=== PATIENT | female | born 1985 | race Caucasian/White ===

== ENCOUNTER 2018-09-02 07:31 | Emergency (ER) | payer OTHER ==
[~2018-09-02] VITALS: Wt 57.7 kg
[2018-09-02] MEDS ORDERED: FERR256T PO (09:15)
--- NOTE | 2018-09-02 09:18 | ERD ---
ER Documentation Chief Complaint Chief Complaint SENT FOR POSSIBLE BLOOD TRANSFUSION HGB 6 HPI 33-year-old female referred to the emergency department for a low hemoglobin. Patient states that she has known that she has been anemic since last September. She was initially on iron pills which she subsequently stopped. She has menometrorrhagia, which is chronic. She saw her doctor who performed blood tests to follow-up on her anemia. These blood tests noted a hemoglobin of 6 and she was referred to the emergency department. Patient reports no chest pain, shortness of breath, lightheadedness. She states that she goes on runs and feels slightly winded but is able to do her normal job. She reports no worsening of menometrorrhagia and no melena or other blood loss. ROS All systems reviewed and are negative except as per history of present illness. Medications Home Meds Active Scripts Ferrous Gluconate (Iron) 256 Mg Tablet, 256 MG PO TID, #30 TAB Prov:CLAUDIO CALDERON 09/02/18 Allergies Allergies: Coded Allergies: No Known Drug Allergy (Verified Allergy, Unknown, 09/02/18) PMhx/Soc History of Surgery: Yes (B breast implants.) Anesthesia Reaction: No Hx Neurological Disorder: No Hx Respiratory Disorders: No Hx Cardiac Disorders: No Hx Psychiatric Problems: No Hx Miscellaneous Medical Probl: No Hx Alcohol Use: Yes (socially) Hx Substance Use: No Hx Tobacco Use: No Smoking Status: Never smoker FmHx Supportive mother at the bedside. No significant family history. Physical Exam Vitals Vital Signs Date Temp Pulse Resp B/P (MAP) Pulse Ox O2 O2 Flow FiO2 Time Delivery Rate 09/02/18 98.1 88 18 141/79 99 07:33 (99) Physical Exam GENERAL: The patient is well developed and appropriate for usual state of health in no apparent distress HEENT: Pupils equal, round, and reactive to light. EOMI. There is no scleral icterus. NECK: C-spine is soft and supple, there is no meningismus. There is no cervical lymphadenopathy. LUNGS: Clear to auscultation bilaterally. There are no rales, wheezes or rhonchi. HEART: Regular rate and rhythm, no murmurs, clicks, rubs or gallops. ABDOMEN: Soft, non-tender, non-distended. There are bowel sounds in all four quadrants. No rebound or guarding. EXTREMITIES: There is no peripheral cyanosis or edema. No focal swelling or erythema. NEURO: The patient moves all four extremities with 5/5 strength. Cranial nerves II - XII are intact. Normal gait. Alert and oriented SKIN: There is no apparent rash or petechiae. HEME/LYMPHATIC: There is no evidence of excessive bruising or lymphedema. PSYCHIATRIC: The patient does not appear anxious or depressed. Result Diagram: 09/02/18 0810 09/02/18 0810 Results 24 hrs Laboratory Tests Test 09/02/18 08:10 White Blood Count 5.1 10^3/ul Red Blood Count 3.41 10^6/ul Hemoglobin 6.3 g/dl Hematocrit 23.3 % Mean Corpuscular Volume 68.3 fl Mean Corpuscular Hemoglobin 18.5 pg Mean Corpuscular Hemoglobin Concent 27.0 g/dl Red Cell Distribution Width 17.3 % Platelet Count 413 10^3/UL Mean Platelet Volume 8.9 fl Immature Granulocytes % 0.400 % Neutrophils % 70.1 % Lymphocytes % 21.1 % Monocytes % 7.4 % Eosinophils % 0.6 % Basophils % 0.4 % Nucleated Red Blood Cells % 0.0 /100WBC Immature Granulocytes # 0.020 10^3/ul Neutrophils # 3.6 10^3/ul Lymphocytes # 1.1 10^3/ul Monocytes # 0.4 10^3/ul Eosinophils # 0.0 10^3/ul Basophils # 0.0 10^3/ul Nucleated Red Blood Cells # 0.0 10^3/ul Pathologist Review (Hematology) YES Sodium Level 144 mmol/L Potassium Level 4.2 mmol/L Chloride Level 111 mmol/L Carbon Dioxide Level 22 mmol/L Anion Gap 11 Blood Urea Nitrogen 14 mg/dl Creatinine 0.49 mg/dl Est Glomerular Filtrat Rate mL/min > 60 mL/min Glucose Level 112 mg/dl Calcium Level 9.3 mg/dl Procedures/MDM Patient was taken to a room, seen and evaluated. Comfort measures were initiated. Diagnostic tests were ordered and reviewed. REEVALUATION: Diagnostic tests were discussed with the patient. She remained he dynamically stable. MEDICAL DECISION MAKIN-year-old female presents with a chronic anemia. She has no evidence of instability with no evidence of endorgan dysfunction related to her severe anemia. The anemia seems to be related to menometrorrhagia, which is chronic. Patient is a [employer]ostic[employer] and after discussion with her, she does not wish to have blood transfusion. She will be placed back on her iron pills. She has been given precautionary understanding instructions but seems appropriate for outpatient care at this time. 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 You have to have your blood levels rechecked in the next week. CLAUDIO CALDERON Sep 02, 2018 09:18
[2018-09-02 09:31] VITALS: BP 113/76; PULSE 79; RESP 16
== END 2018-09-02 09:31 | disposition home or self-care (01) ==
LOC: E/R 07:31
DX: D64.9 Anemia, unspecified (principal); R40.2142 Coma scale, eyes open, spontaneous, at arrival to emergency department; R40.2362 Coma scale, best motor response, obeys commands, at arrival to emergency department; R40.2252 Coma scale, best verbal response, oriented, at arrival to emergency department
CPT/HCPCS: 80048; 85025; 86850; 86900; 86901; 99283